=== PATIENT | female | born 1940 | race Two or more races ===

== ENCOUNTER 2022-09-04 01:23 | Emergency (ER) | payer MEDICARE, BC ==
[~2022-09-04] VITALS: Ht 162.6 cm; Wt 64.9 kg
--- NOTE | 2022-09-04 01:35 | NUR ---
nadine from home for R knee pain, had torn meniscus repair done at private. Patient is [id number]. Able to make needs known. Placed comfortably in bed. Vitals checked.
[2022-09-04 02:13] LABS: BASOPHILS % (AUTO) 0.4 % (0.0-2.0); EOSINOPHILS % (AUTO) 0.7 % (0.0-6.0); HEMATOCRIT 39 % (33-45); HEMOGLOBIN 12.9 g/dL (11.5-14.8); LYMPHOCYTES # (AUTO) 0.7 K/uL (0.8-4.8); MEAN CORPUSCULAR HGB CONC 33 g/dl (31.0-36.0); MEAN CORPUSCULAR VOLUME 85 fL (82-100); MONOCYTES # (AUTO) 0.7 K/uL (0.1-1.30); MONOCYTES % (AUTO) 7.7 % (2.0-12.0); NEUTROPHILS # (AUTO) 7.5 K/uL (1.8-8.9); NEUTROPHILS % (AUTO) 83.2 % (43.0-81.0); PLATELET COUNT (AUTO) 238 K/uL (150-450); WHITE BLOOD COUNT (AUTO) 9.1 K/uL (4.3-11.0)
[2022-09-04 02:17] LABS: CALCIUM, SERUM 9.2 mg/dL (8.5-10.1); CARBON DIOXIDE 29 mmol/L (21-32); CHLORIDE 100 mmol/L (98-107); CREATININE 1.1 mg/dL (0.6-1.3); GLUCOSE 172 mg/dL (74-106); POTASSIUM 3.5 mmol/L (3.5-5.1); SODIUM SERUM 138 mmol/L (136-145); UREA NITROGEN, BLOOD 24 mg/dL (7-18)
[2022-09-04 02:23] LABS: ALANINE AMINOTRANSFERASE 20 U/L (12-78); ALBUMIN 3.5 g/dL (3.4-5.0); ALKALINE PHOSPHATASE 54 U/L (46-116); ASPARTATE AMINOTRANSFERASE 25 U/L (15-37); BILIRUBIN,DIRECT 0.2 mg/dL (0.0-0.2); BILIRUBIN,TOTAL 0.5 mg/dL (0.2-1.0); TOTAL PROTEIN, SERUM 7.1 g/dL (6.4-8.2)
--- NOTE | 2022-09-04 05:32 | NUR ---
IV CANNULA REMOVED
--- NOTE | 2022-09-04 05:32 | NUR ---
Patient discharged to home in stable condition. Written and verbal after care instructions given. Patient verbalizes understanding of instruction.
[2022-09-04 05:33] VITALS: BP 124/64
== END 2022-09-04 05:33 | disposition home or self-care (01) ==
LOC: ER 01:25
DX: R42 Dizziness and giddiness (principal); I10 Essential (primary) hypertension; E78.5 Hyperlipidemia, unspecified
CPT/HCPCS: 36415; 70450-TC; 71045-TC; 80048-TC; 80076-TC; 84484-TC; 85025-TC; 85730-TC

== ENCOUNTER 2023-05-21 21:03 | Inpatient (IN) | payer MEDICARE, BC ==
[~2023-05-21] VITALS: Ht 162.6 cm; Wt 69.4 kg
[2023-05-21] MEDS ORDERED: MORPHINE SULFATE INJ 2 MG/ML DISP.SYRIN ONE (22:47)
[2023-05-21] MEDS ORDERED: hydrALAZINE HCL IV 20 MG VIAL ONE (22:47)
[2023-05-21] MEDS ORDERED: ACETAMINOPHEN ES 500 MG TABLET ONE (22:47)
[2023-05-21] MEDS ORDERED: MORPHINE SULFATE INJ 2 MG/ML DISP.SYRIN IV ONE (23:00)
[2023-05-21] MEDS ORDERED: hydrALAZINE HCL IV 20 MG VIAL IV ONE (23:00)
[2023-05-21] MEDS ORDERED: ACETAMINOPHEN 325 MG TABLET PO ONE (23:00)
[2023-05-21 23:09] LABS: APPEARANCE,URINE SLIGHTLY CLOUDY (CLEAR); BILIRUBIN,URINE NEGATIVE (NEGATIVE); BLOOD, URINE 1+ Ery/uL (NEGATIVE); COLOR,URINE YELLOW (YELLOW); KETONES,URINE NEGATIVE (NEGATIVE); LEUKOCYTE ESTERASE ,URINE 3+ (NEGATIVE); NITRITE, URINE NEGATIVE (NEGATIVE); PROTEIN,URINE NEGATIVE (NEGATIVE); UGLUCOSE NEGATIVE (NEGATIVE); UROBILINOGEN,URINE 0.2 EU/dL (0.2)
[2023-05-21 23:18] LABS: EOSINOPHILS # (AUTO) 0.1 K/uL (0.0-0.7); EOSINOPHILS % (AUTO) 3.4 % (0.0-6.0); HEMATOCRIT 41 % (33-45); HEMOGLOBIN 13.3 g/dL (11.5-14.8); LYMPHOCYTES # (AUTO) 0.7 K/uL (0.8-4.8); MEAN CORPUSCULAR HEMOGLOBIN 27 PG (26.0-33.0); MEAN CORPUSCULAR HGB CONC 32 g/dl (31.0-36.0); MEAN CORPUSCULAR VOLUME 85 fL (82-100); MONOCYTES # (AUTO) 0.6 K/uL (0.1-1.30); MONOCYTES % (AUTO) 16.3 % (2.0-12.0); NEUTROPHILS # (AUTO) 2.4 K/uL (1.8-8.9); NEUTROPHILS % (AUTO) 62.3 % (43.0-81.0); PLATELET COUNT (AUTO) 210 K/uL (150-450); RED BLOOD CELL COUNT(AUTO) 4.86 MIL/uL (4.0-5.2); RED CELL DISTRIBUTION WIDTH 13.5 % (11.5-15.0); WHITE BLOOD COUNT (AUTO) 3.9 K/uL (4.3-11.0)
[2023-05-21 23:31] LABS: INR 1.09 (0.91-1.10); PARTIAL THROMBOPLASTIN TIME 27.6 SEC (24.3-34.3); PROTHROMBIN TIME 11.4 SECS (9.2-11.1)
[2023-05-21 23:36] LABS: ALANINE AMINOTRANSFERASE 25 U/L (12-78); ALBUMIN 3.8 g/dL (3.4-5.0); ALKALINE PHOSPHATASE 61 U/L (46-116); ASPARTATE AMINOTRANSFERASE 22 U/L (15-37); BILIRUBIN,DIRECT 0.1 mg/dL (0.0-0.2); BILIRUBIN,TOTAL 0.4 mg/dL (0.2-1.0); CALCIUM, SERUM 9.8 mg/dL (8.5-10.1); CARBON DIOXIDE 26 mmol/L (21-32); CHLORIDE 103 mmol/L (98-107); GLUCOSE 110 mg/dL (74-106); POTASSIUM 3.7 mmol/L (3.5-5.1); SODIUM SERUM 138 mmol/L (136-145); TOTAL PROTEIN, SERUM 7.7 g/dL (6.4-8.2); UREA NITROGEN, BLOOD 17 mg/dL (7-18)
[2023-05-21 23:50] LABS: ADD URINE CULTURE YES; BACTERIA,URINE 3+ /HPF (None Seen); SQUAMOUS EPITHELIAL CELL,UR Many /HPF (None Seen); WBC,URINE 21-50 /HPF (0-3)
[2023-05-21 23:57] LABS: EOSINOPHILS % (MANUAL) 3 % (0-4); LYMPHOCYTES % (MANUAL) 23 % (16-48); MONOCYTES % (MANUAL) 12 % (0-11.0); NEUTROPHILS % (MANUAL) 62 (42-76); PLATELET ESTIMATE ADEQUATE
[2023-05-22] MEDS ORDERED: IV NS 0.9% 1,000 ML BAG IV ONE
[2023-05-22] MEDS ORDERED: CEFTRIAXONE 1GM BAG (ER ONLY) 1 GM/50 ML PIGGYBACK IV ONE (00:30)
[2023-05-22] MEDS ORDERED: CEFTRIAXONE 1GM BAG (ER ONLY) 50 ML IV ONE (00:37)
[2023-05-22] MEDS ORDERED: MAG HYDROX/AL HYDROX/SIMETH 30 ML UDC PO ONE (01:00)
[2023-05-22] MEDS ORDERED: SIMETHICONE 80 MG TAB.CHEW PO ONE (01:00)
[2023-05-22] MEDS ORDERED: LIDOCAINE VISCOUS 2% UD 15 ML UDC MM ONE (01:00)
[2023-05-22] MEDS ORDERED: MAG HYDROX/AL HYDROX/SIMETH 30 ML UDC ONE (01:09)
[2023-05-22] MEDS ORDERED: LIDOCAINE VISCOUS 2% UD 15 ML UDC ONE (01:10)
[2023-05-22] MEDS ORDERED: SIMETHICONE 80 MG TAB.CHEW ONE (01:10)
[2023-05-22] MEDS ORDERED: ZOLPIDEM TARTRATE 5 MG TABLET PO PRN (01:30)
[2023-05-22] MEDS ORDERED: Z GUARD REMEDY 4 OZ OINT TP PRN (01:30)
[2023-05-22] MEDS ORDERED: MAG HYDROX/AL HYDROX/SIMETH 30 ML UDC PO PRN (01:30)
[2023-05-22] MEDS ORDERED: ONDANSETRON HCL/PF 4 MG/2 ML VIAL IVP PRN (01:30)
[2023-05-22] MEDS ORDERED: MAGNESIUM HYDROXIDE 30 ML UDC PO PRN (01:30)
[2023-05-22 04:00] VITALS: BP 137/67; TEMP 98.7; O2SAT 97
[2023-05-22 06:54] LABS: BASOPHILS % (AUTO) 0.9 % (0.0-2.0); EOSINOPHILS # (AUTO) 0.1 K/uL (0.0-0.7); EOSINOPHILS % (AUTO) 1.7 % (0.0-6.0); HEMATOCRIT 37 % (33-45); HEMOGLOBIN 12.2 g/dL (11.5-14.8); LYMPHOCYTES # (AUTO) 0.6 K/uL (0.8-4.8); LYMPHOCYTES % (AUTO) 18.2 % (20.0-44.0); MEAN CORPUSCULAR HEMOGLOBIN 28 PG (26.0-33.0); MEAN CORPUSCULAR HGB CONC 33 g/dl (31.0-36.0); MEAN CORPUSCULAR VOLUME 84 fL (82-100); MONOCYTES # (AUTO) 0.5 K/uL (0.1-1.30); MONOCYTES % (AUTO) 15.1 % (2.0-12.0); NEUTROPHILS # (AUTO) 2.1 K/uL (1.8-8.9); NEUTROPHILS % (AUTO) 64.1 % (43.0-81.0); PLATELET COUNT (AUTO) 190 K/uL (150-450); RED BLOOD CELL COUNT(AUTO) 4.43 MIL/uL (4.0-5.2); RED CELL DISTRIBUTION WIDTH 13.8 % (11.5-15.0); WHITE BLOOD COUNT (AUTO) 3.3 K/uL (4.3-11.0)
[2023-05-22 07:00] LABS: CALCIUM, SERUM 8.7 mg/dL (8.5-10.1); CREATININE 0.9 mg/dL (0.6-1.3); MAGNESIUM 1.9 mg/dL (1.8-2.4); PHOSPHORUS 3.4 mg/dL (2.5-4.9); POTASSIUM 3.6 mmol/L (3.5-5.1)
[2023-05-22 08:00] VITALS: BP 112/68; TEMP 97.7; O2SAT 97
[2023-05-22 08:08] LABS: THYROID STIMULATING HORMONE 2.041 uIU/mL (0.358-3.74)
[2023-05-22] MEDS: ASPIRIN 81 MG TAB.CHEW PO SCH (08:17)
[2023-05-22] MEDS: VALSARTAN 80 MG TABLET PO SCH (08:58)
[2023-05-22] MEDS ORDERED: CEFTRIAXONE 1 G in IV D5W 50 ML IV SCH (09:00)
[2023-05-22] MEDS ORDERED: PANTOPRAZOLE 40 MG VIAL IV SCH (09:00)
[2023-05-22 12:00] VITALS: BP 121/75; TEMP 98; O2SAT 96
[2023-05-22] MEDS ORDERED: ALLO300T2 PO (12:11)
[2023-05-22] MEDS ORDERED: FEBU40TA PO (12:11)
[2023-05-22] MEDS ORDERED: FEBUXOSTAT PO SCH (13:30)
[2023-05-22 16:00] VITALS: BP 137/68; TEMP 98; O2SAT 96
[2023-05-22] MEDS ORDERED: ALLOPURINOL 100 MG TABLET PO SCH (18:00)
[2023-05-22 20:00] VITALS: BP 137/69; TEMP 98.9; O2SAT 96
[2023-05-22] MEDS: ACETAMINOPHEN 325 MG TABLET PO PRN (20:26)
[2023-05-22] MEDS: CEFTRIAXONE 1 G in IV D5W 50 ML IV SCH (23:05)
[2023-05-23] VITALS: BP 135/65; TEMP 98.2; O2SAT 95
[2023-05-23 04:00] VITALS: BP 145/79; TEMP 98.2; O2SAT 96
[2023-05-23 06:42] LABS: BASOPHILS % (AUTO) 1.1 % (0.0-2.0); EOSINOPHILS # (AUTO) 0.3 K/uL (0.0-0.7); EOSINOPHILS % (AUTO) 8.8 % (0.0-6.0); HEMATOCRIT 39 % (33-45); HEMOGLOBIN 12.6 g/dL (11.5-14.8); LYMPHOCYTES # (AUTO) 0.8 K/uL (0.8-4.8); MEAN CORPUSCULAR HEMOGLOBIN 28 PG (26.0-33.0); MEAN CORPUSCULAR HGB CONC 33 g/dl (31.0-36.0); MEAN CORPUSCULAR VOLUME 84 fL (82-100); MONOCYTES # (AUTO) 0.6 K/uL (0.1-1.30); MONOCYTES % (AUTO) 17.4 % (2.0-12.0); NEUTROPHILS # (AUTO) 1.5 K/uL (1.8-8.9); NEUTROPHILS % (AUTO) 48.7 % (43.0-81.0); PLATELET COUNT (AUTO) 182 K/uL (150-450); RED BLOOD CELL COUNT(AUTO) 4.57 MIL/uL (4.0-5.2); RED CELL DISTRIBUTION WIDTH 13.6 % (11.5-15.0); WHITE BLOOD COUNT (AUTO) 3.2 K/uL (4.3-11.0)
[2023-05-23 07:01] LABS: CALCIUM, SERUM 9.2 mg/dL (8.5-10.1); PHOSPHORUS 3.7 mg/dL (2.5-4.9); POTASSIUM 3.5 mmol/L (3.5-5.1)
[2023-05-23 08:00] VITALS: BP 141/68; TEMP 97.9; O2SAT 97
[2023-05-23] MEDS: VALSARTAN 80 MG TABLET PO SCH (08:17)
[2023-05-23] MEDS: ASPIRIN 81 MG TAB.CHEW PO SCH (08:17)
[2023-05-23] MEDS ORDERED: AMLODIPINE BESYLATE 5 MG TABLET PO SCH (09:00)
[2023-05-23] MEDS: PAROXETINE HCL 10 MG TABLET PO SCH (10:47)
[2023-05-23 12:00] VITALS: BP 135/78; TEMP 98.1; O2SAT 98
[2023-05-23 12:24] LABS: ANISOCYTOSIS 1+; BASOPHILS % (MANUAL) 0 % (0.0-2.0); EOSINOPHILS % (MANUAL) 8 % (0-4); LYMPHOCYTES % (MANUAL) 22 % (16-48); MONOCYTES % (MANUAL) 14 % (0-11.0); NEUTROPHILS % (MANUAL) 56 (42-76); PLATELET ESTIMATE ADEQUATE
[2023-05-23 16:00] VITALS: BP 127/72; TEMP 97.9; O2SAT 97
[2023-05-23 20:00] VITALS: BP 140/72; TEMP 98; O2SAT 97
[2023-05-24] MEDS: CEFTRIAXONE 1 G in IV D5W 50 ML IV SCH (00:03)
[2023-05-24] MEDS: ACETAMINOPHEN 325 MG TABLET PO PRN (03:23)
[2023-05-24 04:00] VITALS: BP 152/81; TEMP 98.9; O2SAT 95
[2023-05-24] MEDS ORDERED: ASPI-1169 PO (07:08)
[2023-05-24] MEDS ORDERED: AMLO-212 PO ×2 (07:08→09:27)
[2023-05-24] MEDS ORDERED: PARO10TA4 PO (07:08)
[2023-05-24] MEDS ORDERED: SULF1TAB48 PO (07:09)
[2023-05-24] MEDS ORDERED: AMLODIPINE BESYLATE 5 MG TABLET PO SCH (09:00)
[2023-05-24] MEDS: PAROXETINE HCL 10 MG TABLET PO SCH ×3 (09:00→10:02)
[2023-05-24] MEDS: ASPIRIN 81 MG TAB.CHEW PO SCH (09:33)
[2023-05-24 09:35] VITALS: BP 134/68
[2023-05-24] MEDS: VALSARTAN 80 MG TABLET PO SCH (09:35)
== END 2023-05-24 11:11 | disposition home or self-care (01) | DRG 74 ==
LOC: ER 21:12 → TELE1 05-22 01:48 → MEDSG1 05-23 09:00
PROVIDERS: ADMIT Nurse Practitioner Acute Care; ATTEND Internal Medicine
DX: G90.8 Other disorders of autonomic nervous system (principal); N39.0 Urinary tract infection, site not specified; I50.32 Chronic diastolic (congestive) heart failure; E78.5 Hyperlipidemia, unspecified; M10.9 Gout, unspecified; I25.10 Atherosclerotic heart disease of native coronary artery without angina pectoris; I11.0 Hypertensive heart disease with heart failure; I44.7 Left bundle-branch block, unspecified; F41.1 Generalized anxiety disorder; I16.0 Hypertensive urgency; B96.1 Klebsiella pneumoniae [K. pneumoniae] as the cause of diseases classified elsewhere; F41.0 Panic disorder [episodic paroxysmal anxiety]; Z95.5 Presence of coronary angioplasty implant and graft
CPT/HCPCS: 36415; 70450-TC; 71045-TC; 80048-TC; 80061-TC; 80076-TC; 81001; 82550-TC; 83605-TC; 83735-TC; 84100-TC; 84443-TC; 84484-TC; 84550-TC; 85025-TC; 85652-TC; 85730-TC; 87040-TC; 87086-TC; 93307-TC; A4223; C9113; C9803; G0378; J0360; J0696; J2270; J7050; J7060

== ENCOUNTER → 2023-10-28 | Emergency (ER) | payer MEDICARE, BC ==
[~2023-10-28] VITALS: Ht 162.6 cm; Wt 68.9 kg
[~2023-10-28] MED LIST: ALLO300T2 PO; AMLO-212 PO; ASPI-1169 PO; FEBU40TA PO; SULF1TAB48 PO
[2023-10-28 01:27] VITALS: BP 164/77; TEMP 98; O2SAT 99
== END | disposition home or self-care (01) ==
LOC: ER 00:09
DX: I10 Essential (primary) hypertension (principal); F41.9 Anxiety disorder, unspecified; Z85.3 Personal history of malignant neoplasm of breast; Z90.49 Acquired absence of other specified parts of digestive tract; Z88.8 Allergy status to other drugs, medicaments and biological substances
CPT/HCPCS: 99281; J7030